=== PATIENT | male | born 1970 | race Caucasian/White ===

== ENCOUNTER 2023-12-28 20:42 | Emergency (ER) | payer BC ==
[~2023-12-28] VITALS: Ht 182.9 cm; Wt 115.0 kg
[~2023-12-28 20:42] MED LIST: ADVAIR HF1 IN; ALPRAZOLAM0.5 M2 PO; AZELASTINE HCL0.1 %; CELEBREX200 M1; DECADRON4 MG PO; DEPO MEDROL; DEPO-TESTOS200 MG/M1 IM; IS-ZC 50 50 MG1 TAB; LISINOPRIL20 M1 PO; LORTAB 5/3255 MG PO; MUPIROCIN2 % EX; OZEMPIC 8 MG/3M1 INJ; PROTONIX40 M2 PO; PROVENTIL0.083 % IN; SUBVENITE100 MG; TADALAFIL20 M1; TEMAZEPAM30 MG PO; TRAZODONE50 MG PO; VITAMIN D7 XX; [UNRECOGNIZED DRUG - SUPPLY]
[2023-12-28] MEDS ORDERED: ONDANSETRON HCl 4 MG/2 ML SDV IV ONE (23:55)
[2023-12-28] MEDS ORDERED: SODIUM CHLORIDE 0.9% 1,000 ML IV ONE (23:55)
[2023-12-28] MEDS ORDERED: HYDROmorphone HCL 2 MG/AMP IV ONE (23:55)
[2023-12-29] VITALS (13 sets, daily range): BP systolic 113–148; BP diastolic 72–101
[2023-12-29] MEDS ORDERED: DIATRIZOATE MEGLUMINE & SODIUM 30 ML/BTL BTL PO ONE (00:05)
[2023-12-29 00:24] LABS: URINE BILIRUBIN - DIPSTICK Negative (NEGATIVE); URINE BLOOD DIPSTICK Negative (NEGATIVE); URINE GLUCOSE - DIPSTICK Negative (NEGATIVE); URINE KETONE Trace mg/dL (NEGATIVE); URINE LEUK ESTERASE Negative (NEGATIVE); URINE NITRITE - DIPSTICK Negative (Negative); URINE PH 5.5 (4.5-8.0); URINE PROTEIN - DIPSTICK Negative (NEG-TRACE); URINE SPECIFIC GRAVITY 1.015; URINE UROBILINOGEN - DIPSTICK 0.2 E.U./dL (0.2)
[2023-12-29 00:24] LABS: BASO% 0.3 % (0-3); EOS% 1.2 % (0-8); HEMATOCRIT 51.1 % (39.0-50.0); HEMOGLOBIN 17.6 g/dl (14.0-18.0); IMMATURE GRANULOCYTES 0.4 % (0.0-5.0); LYMPH% 18.6 % (15-41); MEAN CELL VOLUME 90.6 fL CALC (80.0-100.0); MEAN CORPUSCULAR HGB 31.2 pG CALC (26.0-32.0); MEAN CORPUSCULAR HGB CONC 34.4 g/dL CAL (32.0-36.0); MONO% 7.9 % (2-13); NEUT# 6.99 thou/uL (1.82-7.42); NEUT% 71.6 % (42-76); RED BLOOD COUNT 5.64 mill/uL (4.70-6.10); RED CELL DISTRI WIDTH 12.2 % (11.5-15.5)
[2023-12-29 00:29] LABS: URINE COLOR Yellow
[2023-12-29 00:39] LABS: ALBUMIN 4.7 g/dL (3.2-5.0); ALKALINE PHOSPHATASE 65 u/l (38-126); ANION GAP 11 (6-22 (CALC)); BUN 17 mg/dL (9-20); BUN/CREATININE RATIO 15 (12-20 (CALC)); CARBON DIOXIDE 27 mmol/l (22-30); CHLORIDE 104 mmol/l (95-108); CREATININE 1.1 mg/dL (0.7-1.3); GFR FOR AFR.AMER. > 60 ML/MIN (>=60 (CALC)); GFR OTHER RACES > 60 ML/MIN (>=60 (CALC)); LIPASE 73 u/l (23-300); SGOT/AST 36 u/l (17-59); SODIUM 138 mmol/l (137-146); TOTAL PROTEIN 7.6 g/dL (6.3-8.2)
[2023-12-29] MEDS ORDERED: FAMOTIDINE 10MG/ML 2ML SDV IV ONE (01:25)
[2023-12-29] MEDS ORDERED: PEPCID40 MG PO (05:38)
[2023-12-29] MEDS ORDERED: ZOFRAN4 MG/TAB PO (05:38)
== END 2023-12-29 06:20 | disposition home or self-care (01) | DRG 392 ==
LOC: ED 20:42
PROVIDERS: Emergency Medicine
DX: R10.9 Unspecified abdominal pain (principal); K57.32 Diverticulitis of large intestine without perforation or abscess without bleeding; N41.9 Inflammatory disease of prostate, unspecified; I10 Essential (primary) hypertension
CPT/HCPCS: Q9967